=== PATIENT | female | born 1985 | race Caucasian/White ===

== ENCOUNTER 2024-03-19 17:49 | Emergency (ER) | payer MEDICAID ==
[~2024-03-19] VITALS: Ht 160 cm; Wt 73.0 kg
[2024-03-19 18:02] VITALS: O2SAT 100
[2024-03-19] MEDS: TETANUS, DIPHTHERIA, PERTUSSIS VAC/PF 0.5ML (>10YR OLD) IM ONE (18:42)
[2024-03-19 18:44] VITALS: BP 112/84; PULSE 90; RESP 16; TEMP 98.2
== END 2024-03-19 18:46 | disposition home or self-care (01) ==
LOC: ER 17:49
DX: S51.811A Laceration without foreign body of right forearm, initial encounter (principal); W18.39XA Other fall on same level, initial encounter; Y93.89 Activity, other specified; Y92.89 Other specified places as the place of occurrence of the external cause; Y99.8 Other external cause status
CPT/HCPCS: 90715; 12002; 90471; 99283; Z7610

== ENCOUNTER 2024-11-04 21:11 | Emergency (ER) | payer SELFPAY ==
[~2024-11-04] VITALS: Ht 167.6 cm; Wt 77.0 kg
[2024-11-04 21:27] VITALS: O2SAT 100
[2024-11-04 22:03] VITALS: O2SAT 98
[2024-11-05 01:15] VITALS: BP 147/82; PULSE 97; RESP 16; TEMP 98.3
[2024-11-05] MEDS: ACETAMINOPHEN 325MG TABLET PO ONE (01:15)
[2024-11-05] MEDS: KETOROLAC 30MG/ML VIAL IM ONE (01:15)
[2024-11-05] MEDS ORDERED: TOPUD MT (02:08)
[2024-11-05] MEDS ORDERED: NAPR-679 MT (02:08)
== END 2024-11-05 03:27 | disposition home or self-care (01) ==
LOC: ER 21:11
DX: S82.852A Displaced trimalleolar fracture of left lower leg, initial encounter for closed fracture (principal); Z90.49 Acquired absence of other specified parts of digestive tract; X58.XXXA Exposure to other specified factors, initial encounter; Y93.89 Activity, other specified; Y92.89 Other specified places as the place of occurrence of the external cause; Y99.8 Other external cause status
CPT/HCPCS: 73610; 29515; 99284; 73590; 96372; J1885; Z7610